=== PATIENT | female | born 1960 | race Caucasian/White ===

== ENCOUNTER → 2016-09-08 | Outpatient (CLI) | payer BC ==
[2016-09-08 19:07] LABS: CHCM 32.9; HCT 49.1 % (34.0-46.0); HGB 15.8 gm/dL (11.4-16.0); MCH 29.6 pg (25.0-35.0); MCHC 32.2 g/dL (31.0-37.0); MCV 91.9 fL (80.0-100.0); Mean Platelet Volume 7.4; RBC 5.34 m/uL (3.80-5.40); RDW 12.9 % (11.5-15.5); WBC 10.8 k/uL (3.8-10.6)
[2016-09-08 19:12] LABS: % Iron Saturation 15.2 % (20-50)
[2016-09-08 19:19] LABS: Follicle Stimulating Hormone 6.5 mIU/mL
[2016-09-09 02:47] LABS: Treponemal Ab Non-Reactive (Non-Reactive)
[2016-09-10 08:07] LABS: HIV-1/HIV-2 Ab Screen NONREAC (NON REAC)
== END ==
LOC: MMGSC 10:11
PROVIDERS: ATTEND Obstetrics & Gynecology
DX: N89.8 Other specified noninflammatory disorders of vagina (principal); N92.6 Irregular menstruation, unspecified
CPT/HCPCS: 36415; 82306; 82670; 82728; 83001; 83540; 83550; 84403; 84439; 84443; 85027; 86780; 87340; 87389